=== PATIENT | female | born 1995 | race American Indian/Alaskan Native ===

== ENCOUNTER 2019-08-19 15:40 | Outpatient (CLI) | payer MEDICAID ==
[2019-08-19] MEDS ORDERED: LACTATED RINGERS 1,000 ML ONE (18:11)
[2019-08-19] MEDS ORDERED: LACTATED RINGERS 500 ML IV ONE (18:33)
--- NOTE | 2019-08-19 18:35 | Ultrasound Report ---
US OB bpp ea add exam INDICATION / CLINICAL INFORMATION: labor. COMPARISON: None available. FINDINGS: Single, viable intrauterine in cephalic presentation. heart rate 130. Amniotic fluid volume is normal, with a fluid index of 12 cm. Biophysical profile: Amniotic fluid volume: 2 tone: 2 movement: 2 breathing motion: 2 Total biophysical profile score: 8/8 IMPRESSION: 1. Single, viable intrauterine . 2. Biophysical profile score of 8/8. Signer Name: Rigoberto Mittal MD Signed: 08/19/2019 6:31 PM Workstation Name: [id number]
[2019-08-19] MEDS: TERBUTALINE 1 MG/1 ML INJ SUB-Q SCH ×2 (18:45→19:56)
--- NOTE | 2019-08-19 18:55 | Ultrasound Report ---
LIMITED TRANSABDOMINAL OB PELVIC ULTRASOUND INDICATION / CLINICAL INFORMATION: YAIR determination only. labor. COMPARISON: None available. FINDINGS: presentation is cephalic. The heart rate is 130 bpm. Amniotic fluid volume is normal with an YAIR of 11.9 cm and the deepest vertical pocket measuring 5.8 cm. Signer Name: Jimi Flores MD Signed: 08/19/2019 6:50 PM Workstation Name: [id number]
[2019-08-19 21:34] VITALS: BP 116/65
[2019-08-19 21:49] LABS: Bilirubin,Urine NEG (Negative); Blood,Urine NEG (Negative); Color,Urine Yellow (Yellow); Mucus,Urine FEW /HPF; Protein,Urine <15 mg/dL mg/dL (Negative)
== END 2019-08-19 22:20 | disposition home or self-care (01) ==
LOC: TRG 15:40
PROVIDERS: ATTEND Obstetrics & Gynecology
DX: O62.9 Abnormality of forces of labor, unspecified (principal); Z3A.29 29 weeks gestation of pregnancy
CPT/HCPCS: 36415; 76815; 76819; 81001; 82731; 96372; J3105; J7120; 96360

== ENCOUNTER 2019-09-06 16:32 | Observation (INO) | payer MEDICAID ==
[2019-09-06] MEDS ORDERED: LACTATED RINGERS 1,000 ML IV ONE (17:36)
[2019-09-06] MEDS: TERBUTALINE 1 MG/1 ML INJ SUB-Q SCH ×2 (18:31→19:25)
[2019-09-06 18:45] LABS: Bacteria,Urine 1+ /HPF (Negative); Bilirubin,Urine NEG (Negative); Blood,Urine NEG (Negative); Color,Urine Yellow (Yellow); Mucus,Urine FEW /HPF; Protein,Urine <15 mg/dL mg/dL (Negative); Urobilinogen,Urine < 2.0 mg/dL (<2.0)
[2019-09-06] MEDS ORDERED: ACETAMINOPHEN 325 MG TAB PO PRN (21:04)
[2019-09-06] MEDS ORDERED: diphenhydrAMINE 25 MG CAP PO PRN (21:04)
[2019-09-06] MEDS ORDERED: ONDANSETRON 4 MG/2 ML INJ IV PRN (21:04)
[2019-09-06] MEDS ORDERED: SODIUM CHLORIDE NASAL SPRAY 44ML NS PRN (21:04)
[2019-09-06] MEDS ORDERED: MAGNESIUM SULFATE 4 GM/100 ML BAG IV ONE (21:10)
[2019-09-06] MEDS ORDERED: CALCIUM GLUCONATE 1000 MG/10 ML INJ IV ONE (21:30)
[2019-09-06 21:33] LABS: Basophils % (Auto) 0.1 % (0.0-1.8); Eosinophils % (Auto) 0.3 % (0.0-4.3); Hematocrit 29.1 % (30.3-42.9); Hemoglobin 9.5 gm/dl (10.1-14.3); Lymphocytes # (Auto) 2.7 K/mm3 (1.2-5.4); Lymphocytes % (Auto) 20.3 % (13.4-35.0); Mean Corpuscular HGB Conc 33 % (30-34); Mean Corpuscular Volume 83 fl (79-97); Monocytes # (Auto) 1.1 K/mm3 (0.0-0.8); Monocytes % (Auto) 7.8 % (0.0-7.3); Platelet Count 155 K/mm3 (140-440); Red Cell Distribution Width 13.5 % (13.2-15.2)
[2019-09-06] MEDS: BETAMET ACET/BETAMET NA PH 6 MG/ML INJ 5 ML MDV IM SCH (21:35)
[2019-09-06] MEDS ORDERED: LACTATED RINGERS 1,000 ML IV SCH (22:00)
[2019-09-06] MEDS ORDERED: LACTATED RINGERS 500 ML IV ONE (22:00)
[2019-09-06] MEDS: LACTATED RINGERS 1,000 ML IV SCH (22:09)
[2019-09-06] MEDS: MAGNESIUM SULFATE 40GM/1000ML 40 GM/1,000 ML BAG IV SCH (22:21)
--- NOTE | 2019-09-06 23:43 | Ultrasound Report ---
ULTRASOUND BIOPHYSICAL PROFILE ULTRASOUND OB FOLLOW-UP INDICATION: labor. COMPARISON: 08/19/2019 FINDINGS: breathing movement = 2 Gross body movement = 2 tone = 2 Qualitative amniotic fluid volume = 2 Total biophysical score = 8 Amniotic fluid index is 21.4 cm. (Previously 11.9) Presentation is Cephalic. heart rate is 145 beats per minute. Biparietal diameter 8.0 cm, 32 weeks 2 days Head circumference 29.7 cm, 32 weeks 6 days Abdominal circumference 28.3 cm, 32 weeks 2 days Femur length 6.2 cm, 32 weeks 2 days Grade 1 anterior placenta is noted. The cervix is closed measuring 3 cm. IMPRESSION: 1. biophysical profile = 02/18 2. Amniotic fluid index has increased from 11.9 to 21.4 cm since the prior exam from 08/19/2019. 3. Estimated weight at this time is 4 pounds, 5 ounces. lie is currently cephalic. Signer Name: Bg Salas MD Signed: 09/06/2019 11:38 PM Workstation Name: [id number]
--- NOTE | 2019-09-07 01:54 | History and Physical Report ---
History of Present Illness Date of examination: 09/07/19 Date of admission: 09/06/19 21:14 Chief complaint: contractions History of present illness: Pt is a 23 year old -[place] female LAYLA 10/25/19 at 33w1d who presents with intermittent runs of contractions q 5-6 minutes. She denies vaginal bleeding or leakage of fluid. She has had care at [facility] since transfer into care at 27 wks complicated by h/o delivery at 29 wks on [place], prior section with involvement of the active segment, glucose intolerance, genital herpes, gonorrhea and chlamydia treated with test of cure collected 09/06/19, seizure disorder on Keppra 500 mg daily, trichomonas treated with negative test of cure. Her GBS status is unknown. 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: chlamydia (treated, test of cure pending ), gonorrhea (treated, test of cure pending ), herpes, trichomonas (treated with negative test of cure ) Family/Genetic History: none Social history: no significant social history - Obstetrical History Expected Date of Delivery: 10/25/19 Actual Gestation: 33 Week(s) 1 Day(s) : 3 Para: 1 Hx # Term Pregnancies: 0 Number of Pregnancies: 1 Spontaneous Abortions: 1 Induced : 0 Number of Living Children: 1 Medications and Allergies Allergies Allergy/AdvReac Type Severity Reaction Status Date / Time No Known Allergies Allergy Unverified 08/19/19 15:48 Home Medications Medication Instructions Recorded Confirmed Last Taken Type No Known Home Medications [No 09/06/19 09/06/19 Unknown History Reported Home Medications] Active Meds: Active Medications Acetaminophen (Tylenol) 650 mg PO Q4H PRN PRN Reason: Pain MILD(1-3)/Fever >100.5/GATES Last Admin: 09/07/19 00:44 Dose: 650 mg Documented by: Betamethasone Acet/Betameth SodPhos ([place] Soluspan) 12 mg IM Q24H DMITRI Stop: 09/07/19 22:01 Last Admin: 09/06/19 21:35 Dose: 12 mg Documented by: Diphenhydramine HCl (Benadryl) 25 mg PO Q6H PRN PRN Reason: Itching Docusate Sodium (Colace) 100 mg PO Q12H PRN PRN Reason: Constipation Lactated Ringer's (Lactated Ringers) 1,000 mls @ 125 mls/hr IV DIRECT DMITRI Last Infusion: 09/07/19 00:30 Dose: 75 mls/hr Documented by: Magnesium Sulfate (Magnesium Sulfate 40gm/1000ml) 40 gm in 1,000 mls @ 50 mls/hr IV DIRECT DMITRI Last Admin: 09/06/19 22:21 Dose: 2 gm/hr, 50 mls/hr Documented by: Multivitamins/Iron/Calcium ( Vitamin) 1 each PO QDAY DMITRI Ondansetron HCl (Zofran) 4 mg IV Q6H PRN PRN Reason: Nausea And Vomiting Sodium Chloride (Deep Sea) 2 spray NS Q4H PRN PRN Reason: Congestion Terbutaline Sulfate (Brethine) 0.25 mg SUB-Q Q20MIN DMITRI Stop: 09/08/19 18:01 Last Admin: 09/06/19 19:25 Dose: 0.25 mg Documented by: Review of Systems All systems: negative - Vital Signs Vital signs: Vital Signs Pulse BP 93 H 108/62 09/06/19 16:55 09/06/19 16:55 Temp Pulse Resp BP Pulse Ox 98 F 109 H 18 109/65 100 09/07/19 00:30 09/07/19 01:01 09/07/19 00:30 09/06/19 22:13 09/07/19 01:01 - Physical Exam Breasts: Positive: deferred Abdomen: Positive: soft (gravid, non-tender ) Genitourinary (Female): Positive: normal external genitalia Uterus: Positive: enlarged (gravid ) - Obstetrical FHR: auscultation normal Cervical Dilatation: 0.5 Uterine Contraction Pattern: Irregular Uterine Tone Measurement Phase: Resting Uterine Contraction Intensity: Mild Results Result Diagrams: 09/06/19 20:50 Abnormal lab results 09/06/19 Range/Units 20:50 WBC 13.5 H (4.5-11.0) K/mm3 RBC 3.50 L (3.65-5.03) M/mm3 Hgb 9.5 L (10.1-14.3) gm/dl Hct 29.1 L (30.3-42.9) % MCH 27 L (28-32) pg [place] % (Auto) 7.8 H (0.0-7.3) % [place] # 1.1 H (0.0-0.8) K/mm3 Seg Neutrophils % 71.5 H (40.0-70.0) % Seg Neutrophils # 9.7 H (1.8-7.7) K/mm3 All other labs normal. Assessment and Plan A: IUP at 33w1d contractions despite three doses of Terbutaline H/o delivery at 29 wks on [place] Prior section with involvement of the active segment - no trial of labor Seizure Disorder Glucose intolerance Genital herpes Gonorrhea and chlamydia treated with test of cure collected 09/06/19 GBS unknown P: Admit to antepartum service Betamethasone course Magnesium Sulfate for tocolysis Ultrasound for EFW, BPP MFM consult Continue to monitor clinical status
[2019-09-07] MEDS ORDERED: LIDOCAINE-MPF (1%) 10 MG/1 ML VIAL 5 ML INFILTRATI ONE (03:16)
[2019-09-07] MEDS ORDERED: AZITHROMYCIN 250 MG TAB PO ONE (03:46)
[2019-09-07] MEDS: PRENATAL VIT27-FE FUMARATE-FOLIC ACID VIT TAB PO SCH (10:58)
[2019-09-07] MEDS: DOCUSATE SODIUM 100 MG CAP PO PRN (10:58)
[2019-09-07] MEDS: LACTATED RINGERS 1,000 ML IV SCH (10:59)
[2019-09-07] MEDS: MAGNESIUM SULFATE 40GM/1000ML 40 GM/1,000 ML BAG IV SCH (18:13)
[2019-09-07] MEDS: BETAMET ACET/BETAMET NA PH 6 MG/ML INJ 5 ML MDV IM SCH (21:50)
[2019-09-08] MEDS: LACTATED RINGERS 1,000 ML IV SCH ×3 (04:27→23:06)
--- NOTE | 2019-09-08 08:56 | Progress Note ---
Assessment and Plan A: IUP at 33w2d s/p terb x3 H/o delivery at 29 wks on [place] Prior section with involvement of the active segment - no trial of labor Seizure Disorder Glucose intolerance Genital herpes Gonorrhea and chlamydia treated with test of cure collected 09/06/19 GBS unknown P: Admit to antepartum service Betamethasone course Magnesium Sulfate for tocolysis MFM consult- awaiting consult FFN neg Continue to monitor clinical status Subjective - Subjective Date of service: 09/08/19 Principal diagnosis: contractions Patient reports: movement normal, no new complaints, no loss of fluid, no vaginal bleeding, no contractions Objective - Vital Signs Vital Signs: Vital Signs - 12hr 09/07/19 09/07/19 09/07/19 20:56 21:01 21:06 Temperature Pulse Rate 100 H 109 H 105 H Respiratory Rate Blood Pressure O2 Sat by Pulse 100 100 99 Oximetry 09/07/19 09/07/19 09/07/19 21:11 21:16 21:21 Temperature Pulse Rate 108 H 96 H 101 H Respiratory Rate Blood Pressure O2 Sat by Pulse 100 100 100 Oximetry 09/07/19 09/07/19 09/07/19 21:23 21:26 21:31 Temperature Pulse Rate 96 H 95 H 102 H Respiratory Rate Blood Pressure 109/71 O2 Sat by Pulse 100 100 Oximetry 09/07/19 09/07/19 09/07/19 21:36 21:41 21:46 Temperature Pulse Rate 101 H 103 H 94 H Respiratory Rate Blood Pressure O2 Sat by Pulse 100 100 100 Oximetry 09/07/19 09/07/19 09/07/19 21:51 21:56 22:01 Temperature Pulse Rate 99 H 104 H 105 H Respiratory Rate Blood Pressure O2 Sat by Pulse 100 100 100 Oximetry 09/07/19 09/07/19 09/07/19 22:06 22:11 22:16 Temperature Pulse Rate 105 H 104 H 99 H Respiratory Rate Blood Pressure O2 Sat by Pulse 100 98 99 Oximetry 09/07/19 09/07/19 09/07/19 22:21 22:26 22:31 Temperature Pulse Rate 94 H 101 H 100 H Respiratory Rate Blood Pressure O2 Sat by Pulse 100 100 99 Oximetry 09/07/19 09/07/19 09/07/19 22:36 22:41 22:46 Temperature Pulse Rate 95 H 96 H 98 H Respiratory Rate Blood Pressure O2 Sat by Pulse 99 99 98 Oximetry 09/07/19 09/07/19 09/07/19 22:51 22:56 23:01 Temperature Pulse Rate 107 H 105 H 108 H Respiratory Rate Blood Pressure O2 Sat by Pulse 100 99 100 Oximetry 09/07/19 09/07/19 09/07/19 23:06 23:11 23:16 Temperature Pulse Rate 107 H 96 H 95 H Respiratory Rate Blood Pressure O2 Sat by Pulse 100 100 96 Oximetry 09/07/19 09/07/19 09/07/19 23:21 23:24 23:26 Temperature Pulse Rate 92 H 103 H 89 Respiratory Rate Blood Pressure 117/73 O2 Sat by Pulse 99 99 Oximetry 09/07/19 09/07/19 09/07/19 23:31 23:36 23:37 Temperature Pulse Rate 92 H 95 H 91 H Respiratory Rate Blood Pressure O2 Sat by Pulse 100 99 92 Oximetry 09/07/19 09/07/19 09/07/19 23:41 23:46 23:51 Temperature Pulse Rate 97 H 88 90 Respiratory Rate Blood Pressure O2 Sat by Pulse 98 88 100 Oximetry 09/07/19 09/07/19 09/08/19 23:53 23:56 00:01 Temperature Pulse Rate 92 H 84 91 H Respiratory Rate Blood Pressure O2 Sat by Pulse 92 100 100 Oximetry 09/08/19 09/08/19 09/08/19 00:03 00:06 00:11 Temperature Pulse Rate 54 L 88 92 H Respiratory Rate Blood Pressure O2 Sat by Pulse 84 100 100 Oximetry 09/08/19 09/08/19 09/08/19 00:16 00:21 00:26 Temperature Pulse Rate 89 88 98 H Respiratory Rate Blood Pressure O2 Sat by Pulse 100 100 100 Oximetry 09/08/19 09/08/19 09/08/19 00:31 00:36 00:41 Temperature Pulse Rate 92 H 89 94 H Respiratory Rate Blood Pressure O2 Sat by Pulse 100 100 100 Oximetry 09/08/19 09/08/19 09/08/19 00:46 00:51 00:56 Temperature Pulse Rate 84 98 H 99 H Respiratory Rate Blood Pressure O2 Sat by Pulse 100 100 100 Oximetry 09/08/19 09/08/19 09/08/19 01:01 01:06 01:11 Temperature Pulse Rate 86 89 86 Respiratory Rate Blood Pressure O2 Sat by Pulse 100 99 100 Oximetry 09/08/19 09/08/19 09/08/19 01:16 01:21 01:23 Temperature Pulse Rate 88 92 H 85 Respiratory Rate Blood Pressure 105/63 O2 Sat by Pulse 99 99 Oximetry 09/08/19 09/08/19 09/08/19 01:26 01:31 01:36 Temperature Pulse Rate 94 H 92 H 89 Respiratory Rate Blood Pressure O2 Sat by Pulse 98 99 99 Oximetry 09/08/19 09/08/19 09/08/19 01:41 01:46 01:51 Temperature Pulse Rate 113 H 102 H 107 H Respiratory Rate Blood Pressure O2 Sat by Pulse 99 98 98 Oximetry 09/08/19 09/08/19 09/08/19 01:56 02:01 02:06 Temperature Pulse Rate 101 H 98 H 86 Respiratory Rate Blood Pressure O2 Sat by Pulse 99 100 99 Oximetry 09/08/19 09/08/19 09/08/19 02:11 02:16 02:21 Temperature Pulse Rate 92 H 90 97 H Respiratory Rate Blood Pressure O2 Sat by Pulse 98 99 99 Oximetry 09/08/19 09/08/19 09/08/19 02:26 02:31 02:36 Temperature Pulse Rate 90 91 H 93 H Respiratory Rate Blood Pressure O2 Sat by Pulse 99 99 98 Oximetry 09/08/19 09/08/19 09/08/19 02:41 02:46 02:51 Temperature Pulse Rate 91 H 94 H 100 H Respiratory Rate Blood Pressure O2 Sat by Pulse 98 99 98 Oximetry 09/08/19 09/08/19 09/08/19 02:56 03:01 03:06 Temperature Pulse Rate 92 H 94 H 90 Respiratory Rate Blood Pressure O2 Sat by Pulse 98 100 100 Oximetry 09/08/19 09/08/19 09/08/19 03:11 03:16 03:21 Temperature Pulse Rate 98 H 91 H 83 Respiratory Rate Blood Pressure O2 Sat by Pulse 100 100 99 Oximetry 09/08/19 09/08/19 09/08/19 03:23 03:26 03:31 Temperature Pulse Rate 81 96 H 89 Respiratory Rate Blood Pressure 111/65 O2 Sat by Pulse 98 100 Oximetry 09/08/19 09/08/19 09/08/19 03:36 03:41 03:46 Temperature Pulse Rate 97 H 101 H 98 H Respiratory Rate Blood Pressure O2 Sat by Pulse 100 100 100 Oximetry 09/08/19 09/08/19 09/08/19 03:51 03:56 04:01 Temperature Pulse Rate 89 86 107 H Respiratory Rate Blood Pressure O2 Sat by Pulse 100 100 100 Oximetry 09/08/19 09/08/19 09/08/19 04:06 04:10 04:11 Temperature Pulse Rate 87 97 H 80 Respiratory Rate Blood Pressure O2 Sat by Pulse 100 91 100 Oximetry 09/08/19 09/08/19 09/08/19 04:16 04:21 04:26 Temperature Pulse Rate 87 85 84 Respiratory Rate Blood Pressure O2 Sat by Pulse 100 100 99 Oximetry 09/08/19 09/08/19 09/08/19 04:31 04:36 04:41 Temperature Pulse Rate 85 88 96 H Respiratory Rate Blood Pressure O2 Sat by Pulse 100 100 99 Oximetry 09/08/19 09/08/19 09/08/19 04:46 04:51 04:56 Temperature Pulse Rate 88 96 H 91 H Respiratory Rate Blood Pressure O2 Sat by Pulse 100 99 99 Oximetry 09/08/19 09/08/19 09/08/19 05:01 05:04 05:06 Temperature Pulse Rate 104 H 101 H 94 H Respiratory Rate Blood Pressure O2 Sat by Pulse 98 86 100 Oximetry 09/08/19 09/08/19 09/08/19 05:11 05:16 05:21 Temperature Pulse Rate 86 89 98 H Respiratory Rate Blood Pressure O2 Sat by Pulse 100 100 100 Oximetry 09/08/19 09/08/19 09/08/19 05:24 05:26 05:31 Temperature Pulse Rate 91 H 93 H 95 H Respiratory Rate Blood Pressure 110/63 O2 Sat by Pulse 100 100 Oximetry 09/08/19 09/08/19 09/08/19 05:36 05:41 05:46 Temperature Pulse Rate 98 H 99 H 96 H Respiratory Rate Blood Pressure O2 Sat by Pulse 100 99 100 Oximetry 09/08/19 09/08/19 09/08/19 05:51 05:53 05:56 Temperature Pulse Rate 95 H 119 H 92 H Respiratory Rate Blood Pressure O2 Sat by Pulse 100 81 L 100 Oximetry 09/08/19 09/08/19 09/08/19 06:01 06:06 06:11 Temperature Pulse Rate 105 H 102 H 94 H Respiratory Rate Blood Pressure O2 Sat by Pulse 100 99 98 Oximetry 09/08/19 09/08/19 09/08/19 06:16 06:21 06:26 Temperature Pulse Rate 98 H 93 H 97 H Respiratory Rate Blood Pressure O2 Sat by Pulse 97 98 98 Oximetry 09/08/19 09/08/19 09/08/19 06:31 06:36 06:41 Temperature Pulse Rate 98 H 105 H 97 H Respiratory Rate Blood Pressure O2 Sat by Pulse 100 97 99 Oximetry 09/08/19 09/08/19 09/08/19 06:46 06:51 06:56 Temperature Pulse Rate 114 H 91 H 98 H Respiratory Rate Blood Pressure O2 Sat by Pulse 100 100 99 Oximetry 09/08/19 09/08/19 09/08/19 07:01 07:06 07:11 Temperature Pulse Rate 96 H 99 H 110 H Respiratory Rate Blood Pressure O2 Sat by Pulse 100 99 98 Oximetry 09/08/19 09/08/19 09/08/19 07:16 07:21 07:23 Temperature Pulse Rate 105 H 121 H 95 H Respiratory Rate Blood Pressure 119/67 O2 Sat by Pulse 98 99 Oximetry 09/08/19 09/08/19 09/08/19 07:26 07:31 07:34 Temperature Pulse Rate 106 H 93 H 88 Respiratory Rate Blood Pressure 108/62 O2 Sat by Pulse 100 100 Oximetry 09/08/19 09/08/19 09/08/19 07:36 07:46 07:51 Temperature 98.6 F Pulse Rate 82 92 H Respiratory 16 Rate Blood Pressure O2 Sat by Pulse 99 98 99 Oximetry 09/08/19 09/08/19 09/08/19 07:56 08:01 08:04 Temperature Pulse Rate 123 H 107 H 111 H Respiratory Rate Blood Pressure O2 Sat by Pulse 98 99 94 Oximetry 09/08/19 09/08/19 09/08/19 08:06 08:11 08:16 Temperature Pulse Rate 111 H 105 H 94 H Respiratory Rate Blood Pressure O2 Sat by Pulse 99 99 99 Oximetry 09/08/19 09/08/19 09/08/19 08:21 08:26 08:31 Temperature Pulse Rate 97 H 101 H 96 H Respiratory Rate Blood Pressure O2 Sat by Pulse 98 98 98 Oximetry 09/08/19 09/08/19 09/08/19 08:36 08:41 08:46 Temperature Pulse Rate 95 H 100 H 111 H Respiratory Rate Blood Pressure O2 Sat by Pulse 100 99 100 Oximetry 09/08/19 08:51 Temperature Pulse Rate 102 H Respiratory Rate Blood Pressure O2 Sat by Pulse 99 Oximetry - Exam Breasts: deferred Cardiovascular: Regular rate, Normal S1 Lungs: Clear to auscultation, Normal air movement Abdomen: Present: normal appearance, soft, normal bowel sounds. Absent: distention, tenderness, guarding Vulva: both: normal Uterus: Present: normal, firm, fundal height below umbilicus. Absent: bogginess, tenderness FHR: category 1 Uterine Tone Measurement Phase: Resting Extremities: normal Deep Tendon Reflex Grade: Normal +2 - Labs Labs: Abnormal Labs 09/06/19 09/07/19 09/07/19 20:50 03:30 09:29 WBC 13.5 H RBC 3.50 L Hgb 9.5 L Hct 29.1 L MCH 27 L [place] % (Auto) 7.8 H [place] # 1.1 H Seg Neutrophils % 71.5 H Seg Neutrophils # 9.7 H Magnesium 4.80 H 5.60 H 09/07/19 09/07/19 09/08/19 15:51 22:25 04:07 WBC RBC Hgb Hct MCH [place] % (Auto) [place] # Seg Neutrophils % Seg Neutrophils # Magnesium 5.80 H 6.20 H 6.40 H Laboratory Results - last 24 hr 09/07/19 09/07/19 09/07/19 09:29 15:51 22:25 Magnesium 5.60 H 5.80 H 6.20 H 09/08/19 04:07 Magnesium 6.40 H
[2019-09-08] MEDS: levETIRAcetam 500 MG TAB PO SCH ×2 (09:37→20:36)
[2019-09-08] MEDS: PRENATAL VIT27-FE FUMARATE-FOLIC ACID VIT TAB PO SCH (09:38)
[2019-09-08] MEDS ORDERED: MAGNESIUM SULFATE 40GM/1000ML 40 GM/1,000 ML BAG IV SCH (11:00)
--- NOTE | 2019-09-08 12:35 | Consultation ---
History of Present Illness Consult date: 09/08/19 Requesting physician: ROSE MARY CHAN Reason for consult: contractions History of present illness: The patient is a 23y/o at 33+2 weeks who was admitted overnight in the setting of contractions. The patient states that she was at at [facility] 2 days ago and was having regular contractions. On review of the records, the patient was provided with 3 doses of IV terbutaline with no resolut ion of contractions. The patient had a SVE at 150AM and found to be 0.5cm dilated. No repeat SVE has been performed. The patient was intiiated on betamethsone for lung maturity and magnesium sulfate for tocolysis. Currently, the patient states that she feels comfortable. Denies regular contractions, VB, LOF. +FM. Of note, the patient has a history of a seizure disorder. She has just recently moved to [place] from [place] and is supposed to be taking Keprra 500mg daily. She has not taken this medication since 06/2020 due to running out. She does not have a neurologist. She does state that she had a seizure in June but nothing since. Past History Past Medical History: seizure Past Surgical History: section (The patient reports having a high transverse at 29 weeks and was informed not to ever labor.) [employer] History: chlamydia (treated, test of cure pending ), gonorrhea (treated, test of cure pending ), herpes, trichomonas (treated with negative test of cure ) Family/Genetic History: none Social history: no significant social history, lives with family (Lives with sister) - Obstetrical History : 3 Para: 1 Hx # Term Pregnancies: 0 Number of Pregnancies: 1 (The patient had a at 29 weeks in the setting of labor. She had a high transverse delivery due to NRFHT, per her report.) Spontaneous Abortions: 1 Number of Living Children: 1 Medications and Allergies Allergies Allergy/AdvReac Type Severity Reaction Status Date / Time No Known Allergies Allergy Unverified 08/19/19 15:48 Home Medications Medication Instructions Recorded Confirmed Last Taken Type No Known Home Medications [No 09/06/19 09/06/19 Unknown History Reported Home Medications] Active Meds: Active Medications Acetaminophen (Tylenol) 650 mg PO Q4H PRN PRN Reason: Pain MILD(1-3)/Fever >100.5/GATES Last Admin: 09/07/19 00:44 Dose: 650 mg Documented by: Diphenhydramine HCl (Benadryl) 25 mg PO Q6H PRN PRN Reason: Itching Docusate Sodium (Colace) 100 mg PO Q12H PRN PRN Reason: Constipation Last Admin: 09/07/19 10:58 Dose: 100 mg Documented by: Lactated Ringer's (Lactated Ringers) 1,000 mls @ 125 mls/hr IV DIRECT DMITRI Last Admin: 09/08/19 04:27 Dose: 75 mls/hr Documented by: Magnesium Sulfate (Magnesium Sulfate 40gm/1000ml) 40 gm in 1,000 mls @ 25 mls/hr IV DIRECT DMITRI Last Admin: 09/08/19 10:52 Dose: 1 gm/hr, 25 mls/hr Documented by: Levetiracetam (Keppra) 500 mg PO BID [facility] Last Admin: 09/08/19 09:37 Dose: 500 mg Documented by: Multivitamins/Iron/Calcium ( Vitamin) 1 each PO QDAY [facility] Last Admin: 09/08/19 09:38 Dose: 1 each Documented by: Ondansetron HCl (Zofran) 4 mg IV Q6H PRN PRN Reason: Nausea And Vomiting Sodium Chloride (Deep Sea) 2 spray NS Q4H PRN PRN Reason: Congestion Terbutaline Sulfate (Brethine) 0.25 mg SUB-Q Q20MIN [facility] Stop: 09/08/19 18:01 Last Admin: 09/06/19 19:25 Dose: 0.25 mg Documented by: Review of Systems All systems: negative - Vital Signs Vital signs: Vital Signs Pulse BP 93 H 108/62 09/06/19 16:55 09/06/19 16:55 Temp Pulse Resp BP Pulse Ox 98.6 F 93 H 16 98/54 100 09/08/19 07:36 09/08/19 12:26 09/08/19 07:36 09/08/19 12:13 09/08/19 12:26 - Physical Exam Breasts: Positive: deferred Abdomen: Positive: normal appearance, soft, other (No ruq or epigastric tenderness) Genitourinary (Female): Positive: normal external genitalia - Obstetrical FHR: category 1 FHR comments: 120, mod donald, +A, -D. Uterine Contraction Monitor Mode: External Cervical Dilatation: 0.5 (SVE: 0.5/0/-1/firm/posterior) Uterine Contraction Pattern: Irregular Uterine Tone Measurement Phase: Resting Results Result Diagrams: 09/06/19 20:50 Abnormal lab results 09/07/19 09/07/19 09/08/19 Range/Units 15:51 22:25 04:07 Magnesium 5.80 H 6.20 H 6.40 H (1.7-2.3) mg/dL 09/08/19 09/08/19 Range/Units 08:44 10:23 Magnesium 3.80 H 3.30 H (1.7-2.3) mg/dL All other labs normal. Assessment and Plan IMPRESSIONS: IUP at 33+2 weeks History of PTB at 29 weeks contractions No change in cervix over nearly 12 hours Seizure disorder in , supposed to be on Keppra 500mg daily History of high transverse delivery RECOMMENDATIONS: * Given that the patient is not in labor based on cervical examination, D/C magnesium sulfate * Complete the betamethasone course * Obtain a growth ultrasound to evaluate the estimated weight and anatomy, if not performed * If patient is deemed to be stable in opinion of primary OBGYN, the patient may be discharged home with labor precautions * In the setting of a high transverse delivery, this is a contraindication to vaginal delivery and the incision should be treated as a classical CD. Therefore, delivery is recommended between 36-37 weeks. * When the patient is discharged, she may follow up with [facility] [place] * If the patient demonstrates cervical change in the future in setting of regular contractions, this would be an indication for delivery. * The patient should obtain outpatient consultation with Neurology for her seizure disorder. * The frequency of seizures generally does not increase during in the majority of women with epilepsy. However, occasionally can have an unpredictable and variable influence on epilepsy. In women that have an increase in frequency of seizure during it is sometimes due to difficulty maintaining adequate treatment levels with anticonvulsant drugs (AED) during . I recommended that the patient continue to follow with a Neurologist throughout and have frequent serum drug levels obtained with dose titration as appropriate. * Data on the effect of epilepsy on is inconsistent. Some studies suggest an increase in complications such as stillbirth, or preeclampsia. Other studies have not documented this association. Given the potential serious consequences of active seizure activity during , it is generally recommended that women at high risk seizures in be treated with the appropriate anticonvulsant medication. * Certain anticonvulsant such as valproic acid and phenytoin in should be avoided during because of their association with defects. Several new antiepileptic drugs such as gabapentin, levetiracetam and lamotrigene appear to have better safety profiles. However, data is somewhat limited on these agents and post marketing surveillance is ongoing. There is also some evidence of impaired cognitive development in women taking AED, particularly valproic acid. These recommendations were communicated to Dr. Rose Mary Chan at 1158AM. Austin Chang MD [facility]
--- NOTE | 2019-09-08 13:18 | Event Note ---
Date: 09/08/[address] Chang. He stated that she may be discharged home with f/u in 1 week. We will turn mag off and observe for a couple of hours. She would need a repeat csec at 36-37 weeks per high risk.
--- NOTE | 2019-09-08 15:37 | Ultrasound Report ---
LIMITED OBSTETRIC ULTRASOUND HISTORY: OB follow-up. COMPARISON: 09/06/2019 TECHNIQUE: Limited OB ultrasound performed. FINDINGS: Gestation: Woo Monochorionic monoamniotic intrauterine fetus. Placenta: anterior location and free of the internal cervical os. Presentation: vertex Amniotic Fluid Index: 13.0 cm ANATOMY: Detailed anatomic survey was not requested. Somatic activity is subjectively within normal limits. C ardiac activity is regular rate at133 beats per minute. BIOMETRY: Biparietal diameter: 8.1 cm corresponding to32 weeks 5 days Head circumference: 28.5 cmcorresponding to31 weeks 2 days Abdominal circumference: 24.8 cmcorresponding to29 weeks 0 days 6.2 Femur length: 6.2 cmcorresponding to32 weeks 0 days Estimated weight: 1579 grams. Estimated gestational age based on clinical history/previous ultrasound: 33 weeks 2 days with LAYLA 10/12 Estimated gestational age based on today's measurements: 31 weeks 2 days IMPRESSION: Single living intrauterine at approximately 33 weeks 2 days with no significant abnormality other than a 2 week growth lag. Signer Name: Aydin Saleh MD Signed: 09/08/2019 3:33 PM Workstation Name: [id number]
[2019-09-08] MEDS: DOCUSATE SODIUM 100 MG CAP PO PRN (20:36)
--- NOTE | 2019-09-09 05:06 | Event Note ---
Date: 09/09/19 Spoke to nurse yesterday and per the nurse patient having mild contractions still palpable. We decided to observe over night rosalia pattern. Will asses in am if in labor.
[2019-09-09] MEDS: LACTATED RINGERS 1,000 ML IV SCH (09:43)
[2019-09-09] MEDS: levETIRAcetam 500 MG TAB PO SCH (09:44)
[2019-09-09] MEDS: PRENATAL VIT27-FE FUMARATE-FOLIC ACID VIT TAB PO SCH (09:44)
--- NOTE | 2019-09-09 13:34 | Progress Note ---
Subjective - Subjective Principal diagnosis: contractions Interval history: Pt is a 23 year old -[place] female LAYLA 10/25/19 at 33w1d who presents with intermittent runs of contractions q 5-6 minutes. She denies vaginal bleeding or leakage of fluid. She has had care at [facility] since transfer into care at 27 wks complicated by h/o delivery at 29 wks on [place], prior section with involvement of the active segment, glucose intolerance, genital herpes, gonorrhea and chlamydia treated with test of cure collected 09/06/19, seizure disorder on Keppra 500 mg daily, trichomonas treated with negative test of cure. Her GBS status is un known. Patient reports: movement normal, no new complaints, no loss of fluid, no vaginal bleeding, no contractions Objective - Vital Signs Vital Signs: Vital Signs - 12hr 09/09/19 09/09/19 09/09/19 03:56 04:01 04:06 Temperature Pulse Rate 95 H 101 H 93 H Respiratory Rate Blood Pressure 112/61 O2 Sat by Pulse 100 98 99 Oximetry 09/09/19 09/09/19 09/09/19 04:11 04:34 08:31 Temperature 98.6 F Pulse Rate 114 H 80 93 H Respiratory 16 Rate Blood Pressure 109/61 O2 Sat by Pulse 98 99 Oximetry 09/09/19 09/09/19 09/09/19 08:33 08:36 08:38 Temperature Pulse Rate 97 H 93 H 89 Respiratory Rate Blood Pressure 110/67 O2 Sat by Pulse 99 98 Oximetry 09/09/19 09/09/19 09:43 09:46 Temperature Pulse Rate 107 H 110 H Respiratory Rate Blood Pressure 103/53 O2 Sat by Pulse 99 Oximetry - Labs Labs: Abnormal Labs 09/06/19 09/07/19 09/07/19 20:50 03:30 09:29 WBC 13.5 H RBC 3.50 L Hgb 9.5 L Hct 29.1 L MCH 27 L [place] % (Auto) 7.8 H [place] # 1.1 H Seg Neutrophils % 71.5 H Seg Neutrophils # 9.7 H Magnesium 4.80 H 5.60 H 09/07/19 09/07/19 09/08/19 15:51 22:25 04:07 WBC RBC Hgb Hct MCH [place] % (Auto) [place] # Seg Neutrophils % Seg Neutrophils # Magnesium 5.80 H 6.20 H 6.40 H 09/08/19 09/08/19 08:44 10:23 WBC RBC Hgb Hct MCH [place] % (Auto) [place] # Seg Neutrophils % Seg Neutrophils # Magnesium 3.80 H 3.30 H
--- NOTE | 2019-09-09 13:36 | Discharge Summary ---
Providers - Providers Date of Admission: 09/06/19 21:14 Date of discharge: 09/09/19 Attending physician: MARIA E MCKENZIE 09/07/19 07:00 Consult to Physician [CONS] Routine Comment: Consulting Provider: CHRISTIANO GRIMALDO Physician Instructions: Reason For Exam: IUP at 32 wks, contractions, T incision Primary care physician: TIFFANIE CARRINGTON MD Hospitalization Reason for admission: other ( contractions ) Procedure details: Magnesium Sulfate tocolysis Betamethasone course Condition at discharge: Stable Disposition: DC-01 TO HOME OR SELFCARE - Discharge Diagnoses (1) contractions Status: Acute (2) Previous section Status: Acute (3) Seizure disorder during Status: Acute Qualifiers: Trimester: third trimester Qualified Code(s): O99.353 - Diseases of the nervous system complicating , third trimester; G40.909 - Epilepsy, unspecified, not intractable, without status epilepticus Plan - Provider Discharge Summary Activity: other (Bed rest, pelvic rest ) Additional instructions: [] Smoking cessation referral if applicable(refer to patient education folder for contact #) [] Refer to [facility] Booklet Call your doctor immediately for: * Fever > 100.5 * Heavy vaginal bleeding ( >1 pad per hour) * Severe persistent headache * Shortness of breath * Reddened, hot, painful area to leg or breast * Drainage or odor from incision. * Keep incision clean and dry at all times and follow doctor's instructions regarding bathing/showering - Follow up plan Follow up: TIFFANIE CARRINGTON MD [Primary Care Provider] - 7 Days
[2019-09-09 13:54] VITALS: BP 112/64
== END 2019-09-10 08:31 | disposition home or self-care (01) ==
LOC: TRG 16:32 → LD 21:14
PROVIDERS: ADMIT Obstetrics & Gynecology; ATTEND Obstetrics & Gynecology
DX: O62.9 Abnormality of forces of labor, unspecified (principal); O60.03 Preterm labor without delivery, third trimester; Z3A.32 32 weeks gestation of pregnancy
CPT/HCPCS: 36415; 76816; 76819; 81001; 82731; 83735; 85025; 86850; 86900; 86901; 96365; 96366; 96367; 96372; G0378; J0696; J0702; J3105; J3475; J7120; 96360; 96361